=== PATIENT | male | born 1965 | race Caucasian/White ===

== ENCOUNTER → 2019-06-21 | Outpatient (CLI) | payer BC ==
[~2019-06-21] MED LIST: ACET325T49 PO; ATOR20TA49 PO; BUDE10.2 IH; CETI10CA PO; DICL75TA2 PO; HYDR-3730 PO; MELO15TA14 PO; MELO15TA39 PO; MONT10TA21 PO; NF-ACI30T PO; ONDA4TAB8 PO; PANT40SU PO; PANT40TA2 PO; RABE20TA PO; RT-ALBUINH IH
--- NOTE | 2019-06-21 14:08 | Diagnostic Imaging Report ---
Indication: Left rib cage pain. History of fall several years ago. Patient has been therapy for the last month. Left shoulder and rib pain. Findings: Frontal view of the chest demonstrate the lungs to be clear. The heart, mediastinum, pulmonary vascularity and visualized bony thorax normal. No pleural effusion or pneumothorax is present. Impression: Normal chest. Dictated by: Dictated on workstation # [id number]
--- NOTE | 2019-06-21 18:56 | Diagnostic Imaging Report ---
INDICATION: Left shoulder pain. AP, oblique, and trans-scapular views of the left shoulder are obtained. No fracture or dislocation is seen. There is moderate narrowing of the glenohumeral joint. The AC joint appears intact. IMPRESSION: Moderate degenerative change of the left glenohumeral joint. Left AC joint appears unremarkable. No acute bony abnormality. Dictated by: Dictated on workstation # [id number]
== END ==
LOC: RAD 11:21
PROVIDERS: ATTEND Family Medicine
DX: M19.012 Primary osteoarthritis, left shoulder (principal); R07.81 Pleurodynia
CPT/HCPCS: 71045; 73030

== ENCOUNTER → 2019-08-04 | Outpatient (CLI) | payer BC ==
--- NOTE | 2019-08-04 14:10 | Diagnostic Imaging Report ---
Exam: Nuclear medicine gastric emptying study. Date: August 04, 2019. Indication: 54-year-old male, abdominal pain, nausea, vomiting. Comparison: None. Findings: 1.08 mCi of technetium labeled sulfur colloid was administered. Subsequent anterior and posterior scintigraphic images of the stomach were obtained over a 4 hour timeframe for calculation of gastric emptying. At 1 hour, there is approximately 65% gastric emptying. At 2 hours, there is approximately 68% gastric emptying. At 3 hours, there is approximately 70% gastric emptying. At 4 hours, there is approximately 79% gastric emptying. Impression: 1. Initially, there is rapid gastric emptying. However, at 4 hours, there is 79% gastric emptying which is below lower limits of normal and compatible with delay in gastric emptying. Dictated by: Dictated on workstation # [id number]
== END ==
LOC: CARD 09:02
PROVIDERS: ATTEND Surgery
DX: R10.9 Unspecified abdominal pain (principal); R11.2 Nausea with vomiting, unspecified; R14.0 Abdominal distension (gaseous)
CPT/HCPCS: 78264

== ENCOUNTER → 2019-08-10 | Outpatient (CLI) | payer BC ==
--- NOTE | 2019-08-10 17:51 | Diagnostic Imaging Report ---
PROCEDURE: MR imaging cervical spine without contrast. TECHNIQUE: Multiplanar, multisequence MR imaging of the cervical spine was performed without contrast. DATE: August 10, 2019. COMPARISON: None. INDICATION: 54-year-old male, neck pain. FINDINGS: There is normal cervical spine alignment. The bone marrow signal is unremarkable. The visualized spinal cord is unremarkable. The disc heights are well preserved. C2-C3: There is no disc bulge. The uncovertebral and facet joints are unremarkable. There is no foraminal narrowing. There is no spinal canal stenosis. C3-C4: There is no disc bulge. There are right facet degenerative changes. There is moderate right foraminal narrowing. There is no spinal canal stenosis. C4-C5: There is no disc bulge. There are mild right facet degenerative changes. There is no foraminal narrowing. There is no spinal canal stenosis. C5-C6: There is no disc bulge. The uncovertebral and facet joints are unremarkable. There is no foraminal narrowing. There is no spinal canal stenosis. C6-C7: There is no disc bulge. The uncovertebral and facet joints are unremarkable. There is no foraminal narrowing. There is no spinal canal stenosis. C7-T1: There is no disc bulge. The uncovertebral and facet joints are unremarkable. There is no foraminal narrowing. There is no spinal canal stenosis. IMPRESSION: 1. Right facet degenerative changes at C3-C4 with associated moderate right foraminal narrowing. 2. Mild right facet degenerative changes at C4-C5 without foraminal or spinal stenosis. 3. No cervical disc protrusion or extrusion. 4. No abnormal signal within the cervical spinal cord. Dictated by: Dictated on workstation # [id number]
== END ==
LOC: RAD 16:16
PROVIDERS: ATTEND Orthopaedic Surgery
DX: M47.22 Other spondylosis with radiculopathy, cervical region (principal); M48.02 Spinal stenosis, cervical region
CPT/HCPCS: 72141

== ENCOUNTER → 2019-12-25 | Outpatient (CLI) | payer BC ==
[2019-12-25 12:25] LABS: BASOPHILS % (AUTO) 1 % (0-10); EOSINOPHILS # (AUTO) 0.1 10^3/uL (0.0-0.3); EOSINOPHILS % (AUTO) 2 % (0-10); HEMATOCRIT 44 % (40-54); HEMOGLOBIN 15.3 G/DL (13.3-17.7); LYMPHOCYTES # (AUTO) 1.2 X 10^3 (1.0-4.0); LYMPHOCYTES % (AUTO) 20 % (12-44); MEAN CORPUSCULAR HEMOGLOBIN 31 PG (25-34); MEAN CORPUSCULAR HGB CONC 35 G/DL (32-36); MEAN CORPUSCULAR VOLUME 88 FL (80-99); MEAN PLATELET VOLUME 9.8 FL (7.4-10.4); MONOCYTES # (AUTO) 0.5 X 10^3 (0.0-1.0); MONOCYTES % (AUTO) 8 % (0-12); NEUTROPHILS # (AUTO) 4.1 X 10^3 (1.8-7.8); NEUTROPHILS % (AUTO) 70 % (42-75); PLATELET COUNT 215 10^3/uL (130-400); WHITE BLOOD COUNT 5.8 10^3/uL (4.3-11.0)
[2019-12-25 12:44] LABS: ALANINE AMINOTRANSFERASE 15 U/L (0-55); ALBUMIN 4.3 GM/DL (3.2-4.5); ALKALINE PHOSPHATASE 49 U/L (40-136); BILIRUBIN,TOTAL 0.8 MG/DL (0.1-1.0); BUN/CREATININE RATIO 8; CALCIUM 9.4 MG/DL (8.5-10.1); CARBON DIOXIDE 23 MMOL/L (21-32); CHLORIDE 106 MMOL/L (98-107); CREATININE SERUM 1.06 MG/DL (0.60-1.30); GFR ESTIMATED > 60; GLUCOSE 133 MG/DL (70-105); SODIUM 138 MMOL/L (135-145)
[2019-12-25 13:07] LABS: FREE T4 (FREE THYROXINE) 1.05 NG/DL (0.70-1.48)
== END ==
LOC: LAB 12:10
PROVIDERS: ATTEND Family Medicine
DX: J02.9 Acute pharyngitis, unspecified (principal)
CPT/HCPCS: 36415; 80053; 84439; 84443; 85025; 86308

== ENCOUNTER → 2020-03-22 | Outpatient (CLI) | payer BC ==
[~2020-03-22] MED LIST changes: +HOLD METFORMIN - RECEIVED CONTRAST 20 ML VIAL IV SCH; +IOHEXOL 350 MG/ML 100 ML (OMNIPAQUE 350) VIAL IV ONE; +NS 100 ML (IVPB) BAG IV ONE
[2020-03-22 08:21] LABS: ALANINE AMINOTRANSFERASE 14 U/L (0-55); ALBUMIN 4.3 GM/DL (3.2-4.5); ALKALINE PHOSPHATASE 53 U/L (40-136); BILIRUBIN,TOTAL 0.7 MG/DL (0.1-1.0); BUN/CREATININE RATIO 9; CALCIUM 9.4 MG/DL (8.5-10.1); CARBON DIOXIDE 20 MMOL/L (21-32); CHLORIDE 107 MMOL/L (98-107); GFR ESTIMATED > 60; GLUCOSE 101 MG/DL (70-105); POTASSIUM 3.8 MMOL/L (3.6-5.0); SODIUM 139 MMOL/L (135-145); TOTAL PROTEIN 7.3 GM/DL (6.4-8.2)
--- NOTE | 2020-03-22 09:04 | Diagnostic Imaging Report ---
EXAMINATION: CT Abdomen and Pelvis with intravenous contrast. TECHNIQUE: Multiple contiguous axial images were obtained through the abdomen and pelvis after the uneventful administration of intravenous contrast. All CT scans use one or more of the following dose optimizing techniques: automated exposure control, MA and/or KvP adjustment based on a patient size and exam type, or iterative reconstruction. HISTORY: Hiatal hernia, abdominal pain COMPARISON: 05/11/2011 FINDINGS: Limited views of the lower thorax show a new 6 mm left lower lobe nodule (series 2, image 10). The liver is normal without focal lesion. There is no biliary ductal dilation. Gallbladder is normal. Pancreas is normal. Spleen is normal. Adrenal glands are normal. The kidneys are normal. There is no hydronephrosis. Urinary bladder is normal. Visualized bowel is normal in caliber without obstruction or inflammation. There is a small hiatal hernia which is new from prior exam. No free fluid or air. No abdominal or pelvic lymphadenopathy. Aorta is normal in caliber without aneurysm. There are no suspicious osseus lesions. IMPRESSION: 1. New small hiatal hernia. 2. New small left lower lobe nodule. According to the Fleischner Society guidelines: In a low risk patient, no routine follow up is recommended. In a high risk patient, consider optional CT at 12 months. Dictated by: Dictated on workstation # [id number]
== END ==
LOC: RAD 07:50
PROVIDERS: ATTEND Thoracic Surgery (Cardiothoracic Vascular Surgery)
DX: K44.9 Diaphragmatic hernia without obstruction or gangrene (principal); R91.1 Solitary pulmonary nodule
CPT/HCPCS: 36415; 74177; 80053; 82565; 84520

== ENCOUNTER → 2020-04-02 | Outpatient (CLI) | payer BC ==
[~2020-04-02] MED LIST changes: -HOLD METFORMIN - RECEIVED CONTRAST 20 ML VIAL IV SCH; -IOHEXOL 350 MG/ML 100 ML (OMNIPAQUE 350) VIAL IV ONE; -NS 100 ML (IVPB) BAG IV ONE
== END ==
LOC: LABNPT 09:13
PROVIDERS: ATTEND Nurse Practitioner Adult Health
DX: Z11.59 Encounter for screening for other viral diseases (principal)
CPT/HCPCS: 87635

== ENCOUNTER → 2020-04-12 | Outpatient (CLI) | payer BC ==
--- NOTE | 2020-04-12 20:05 | Diagnostic Imaging Report ---
INDICATION: Hand pain, swelling. EXAMINATION: Right upper extremity venous Doppler. Spectral and color-flow imaging of the deep venous system was performed. COMPARISON: There is no prior study for comparison. FINDINGS: There is thrombus formation in a branch of the basilic vein in the mid forearm. This extends into the basilic vein cephalad to the level of the lower biceps. There also appears to be a small amount of thrombus formation within the brachial vein. The remainder of the deep venous system is unremarkable for thrombosis. IMPRESSION: 1. There is thrombosis of a branch of the basilic vein extending from the mid forearm to the lower upper arm. There is also a small amount of thrombus formation within the brachial vein. 2. There is no other evidence for a deep venous thrombosis. Dictated by: Dictated on workstation # [id number]
== END ==
LOC: RAD 13:39
PROVIDERS: ATTEND Family Medicine
DX: I82.611 Acute embolism and thrombosis of superficial veins of right upper extremity (principal); I82.621 Acute embolism and thrombosis of deep veins of right upper extremity

== ENCOUNTER → 2020-04-16 | Outpatient (CLI) | payer BC | LOC: LABNPT 08:51 | PROVIDERS: ATTEND Thoracic Surgery (Cardiothoracic Vascular Surgery) | DX: Z11.59 Encounter for screening for other viral diseases (principal) | CPT/HCPCS: 87635 ==

== ENCOUNTER → 2020-06-03 | Outpatient (CLI) | payer BC | LOC: LABNPT 06:46 | PROVIDERS: ATTEND Thoracic Surgery (Cardiothoracic Vascular Surgery) | DX: Z01.812 Encounter for preprocedural laboratory examination (principal); K44.9 Diaphragmatic hernia without obstruction or gangrene; K21.0 Gastro-esophageal reflux disease with esophagitis; Z20.828 Contact with and (suspected) exposure to other viral communicable diseases | CPT/HCPCS: 87635 ==

== ENCOUNTER 2020-07-04 08:00 | Outpatient (RCR) | payer BC ==
[2020-06-21 10:37] LABS: INR 1.1 (0.8-1.4); PROTHROMBIN TIME PATIENT 14.8 SEC (12.2-14.7)
[2020-06-21 10:44] LABS: ALANINE AMINOTRANSFERASE 80 U/L (0-55); ALBUMIN 3.7 GM/DL (3.2-4.5); ALKALINE PHOSPHATASE 178 U/L (40-136); BILIRUBIN,TOTAL 1.2 MG/DL (0.1-1.0); BUN/CREATININE RATIO 16; CALCIUM 9.1 MG/DL (8.5-10.1); CARBON DIOXIDE 22 MMOL/L (21-32); CHLORIDE 105 MMOL/L (98-107); CREATININE SERUM 0.86 MG/DL (0.60-1.30); GFR ESTIMATED > 60; GLUCOSE 97 MG/DL (70-105); POTASSIUM 3.7 MMOL/L (3.6-5.0); SODIUM 135 MMOL/L (135-145); TOTAL PROTEIN 7.8 GM/DL (6.4-8.2)
[2020-06-27 08:31] LABS: ALANINE AMINOTRANSFERASE 42 U/L (0-55); ALBUMIN 3.9 GM/DL (3.2-4.5); ALKALINE PHOSPHATASE 137 U/L (40-136); BUN/CREATININE RATIO 10; CALCIUM 9.5 MG/DL (8.5-10.1); CARBON DIOXIDE 23 MMOL/L (21-32); CHLORIDE 106 MMOL/L (98-107); CREATININE SERUM 0.92 MG/DL (0.60-1.30); GFR ESTIMATED > 60; GLUCOSE 98 MG/DL (70-105); SODIUM 139 MMOL/L (135-145); TOTAL PROTEIN 7.7 GM/DL (6.4-8.2)
[2020-06-27 08:57] LABS: INR 1.8 (0.8-1.4); PROTHROMBIN TIME PATIENT 21.3 SEC (12.2-14.7)
[2020-07-02 08:28] LABS: BASOPHILS % (AUTO) 1 % (0-10); EOSINOPHILS # (AUTO) 0.3 10^3/uL (0.0-0.3); EOSINOPHILS % (AUTO) 5 % (0-10); HEMATOCRIT 37 % (40-54); HEMOGLOBIN 12.3 G/DL (13.3-17.7); LYMPHOCYTES % (AUTO) 21 % (12-44); MEAN CORPUSCULAR HEMOGLOBIN 30 PG (25-34); MEAN CORPUSCULAR HGB CONC 33 G/DL (32-36); MEAN CORPUSCULAR VOLUME 89 FL (80-99); MEAN PLATELET VOLUME 9.6 FL (7.4-10.4); MONOCYTES # (AUTO) 0.4 X 10^3 (0.0-1.0); MONOCYTES % (AUTO) 9 % (0-12); NEUTROPHILS # (AUTO) 3.1 X 10^3 (1.8-7.8); NEUTROPHILS % (AUTO) 64 % (42-75); PLATELET COUNT 323 10^3/uL (130-400); WHITE BLOOD COUNT 4.8 10^3/uL (4.3-11.0)
[2020-07-04 08:28] LABS: INR 2.4 (0.8-1.4); PROTHROMBIN TIME PATIENT 26.5 SEC (12.2-14.7)
== END 2020-09-19 | disposition home or self-care (01) ==
LOC: LAB 08:00
PROVIDERS: ATTEND Family Medicine
DX: I82.621 Acute embolism and thrombosis of deep veins of right upper extremity (principal); Z79.899 Other long term (current) drug therapy
CPT/HCPCS: 36415; 80053; 85025; 85610

== ENCOUNTER → 2020-08-21 | Outpatient (CLI) | payer BC ==
--- NOTE | 2020-08-21 10:51 | Diagnostic Imaging Report ---
PROCEDURE: MRI right joint lower extremity without contrast. TECHNIQUE: Multiplanar, multisequence non contrast-enhanced MRI of the right lower extremity was accomplished. INDICATION: Fall 8 weeks ago with right knee injury. COMPARISON: None FINDINGS: No acute fracture is seen in the right knee. Subcortical cystlike change is seen in the lateral tibial plateau which is degenerative. There is a small right knee joint effusion. There is heterogeneity and surface irregularity of articular cartilage in the patellofemoral compartment. The medial compartment demonstrates moderate thinning and surface irregularity with no large full-thickness defects. Articular cartilage in the lateral compartment demonstrates mild thinning and surface irregularity with a small full-thickness defect at the posterior tibia measuring 3 mm. There is increased signal of the posterior horn of the medial meniscus which appears to extend to the inferior articular surface. The lateral meniscus has a horizontal tear at the posterior horn extending to the inferior articular surface (image 21 series 6). The anterior and posterior cruciate ligaments appear intact. The medial collateral ligament and the lateral collateral ligament is complex are intact. The extensor mechanism is intact. The medial and lateral retinacula appear intact. There is moderate anterior subcutaneous edema. There is minimal fluid in the Hewitt's cyst. IMPRESSION: 1. Small tear at the posterior horn of the lateral meniscus. Marked intrasubstance degeneration of the medial meniscus with suspected tear posteriorly. 2. Small right knee joint effusion. 3. Mild cartilage loss in the right knee with a small full-thickness defect at the posterior lateral tibia. Dictated by: Dictated on workstation # [id number]
== END ==
LOC: RAD 09:30
PROVIDERS: ATTEND Orthopaedic Surgery
DX: S83.281A Other tear of lateral meniscus, current injury, right knee, initial encounter (principal); W19.XXXA Unspecified fall, initial encounter
CPT/HCPCS: 73721

== ENCOUNTER → 2020-12-23 | Outpatient (CLI) | payer BC ==
--- NOTE | 2020-12-23 10:20 | Diagnostic Imaging Report ---
PROCEDURE: US Gallbladder. TECHNIQUE: Multiple real-time grayscale images were obtained over the right upper quadrant in various projections. INDICATION: Right upper quadrant pain and diarrhea after eating. COMPARISON: None available. FINDINGS: The liver is normal in size measuring 16 cm and has normal echogenicity. There is no focal hepatic mass. The main portal vein is patent with antegrade flow. The gallbladder is distended without gallstones, wall thickening, or pericholecystic fluid. The common bile duct is able to be visualized as it was secured by overlying bowel gas. No intrahepatic biliary duct dilatation. The majority of the pancreas is obscured by overlying bowel gas and cannot be evaluated. The right kidney is normal in size. No hydronephrosis, shadowing calculi, or suspicious mass lesion. IMPRESSION: 1. Normal gallbladder. 2. Common bile duct is obscured by overlying bowel gas. However, there is no intrahepatic biliary duct dilatation. Dictated by: Dictated on workstation # [id number]
== END ==
LOC: RAD 08:00
PROVIDERS: ATTEND Family Medicine
DX: R10.11 Right upper quadrant pain (principal); R19.7 Diarrhea, unspecified
CPT/HCPCS: 76705

== ENCOUNTER → 2021-01-27 | Outpatient (CLI) | payer BC ==
[~2021-01-27] MED LIST changes: +CATHETER FLUSH 10 ML SYR IV PRN
--- NOTE | 2021-01-27 11:57 | Diagnostic Imaging Report ---
Hepatobiliary with ejection fraction INDICATION: Right upper quadrant pain There are no prior nuclear medicine studies available for comparison. The gallbladder ultrasound exam performed on 12/23/2020 failed to show any sign of an acute abnormality although the common bile duct was not well visualized. For this exam 5.42 mCi of 99 technetium Choletec was administered. One can of ensure was also given for the ejection fraction calculation. There is uptake of the radiotracer by the gallbladder before 30 minutes. This would weigh against the diagnosis of acute cholecystitis. There is also extension of the radiotracer into the small bowel indicating the common bile duct is not obstructed. The ejection fraction is 32.8% (normal greater than 35%). Impression: 1. There is no evidence for an acute cholecystitis or for obstruction of common bile duct. 2. The ejection fraction is 32.8% and just below normal limits. Clinical follow-up is recommended. Dictated by: Dictated on workstation # [id number]
== END ==
LOC: CARD 09:31
PROVIDERS: ATTEND Family Medicine
DX: K82.8 Other specified diseases of gallbladder (principal)
CPT/HCPCS: 78227; A9537

== ENCOUNTER → 2021-06-05 | Outpatient (CLI) | payer BC ==
[~2021-06-05] MED LIST changes: -CATHETER FLUSH 10 ML SYR IV PRN
--- NOTE | 2021-06-05 13:08 | Diagnostic Imaging Report ---
PROCEDURE: MRI left upper extremity without contrast. TECHNIQUE: Multiplanar, multisequence non contrast-enhanced MRI of the left upper extremity was accomplished. INDICATION: Shoulder pain. No recent injuries. Prior steroid injections. EXAMINATION: Left shoulder MRI without contrast dated 03/20/2021. FINDINGS: There is diffuse thinning and T2 hyperintensity throughout the supraspinatus and portions of the infraspinatus tendons proximal to the insertion at the greater tuberosity consistent with partial tears. No full-thickness extension is appreciated. There is no retraction. The subscapularis tendon is intact. The long head of the biceps tendon is intact and lies within the bicipital groove. The biceps tendon anchor is intact. The labrum is grossly intact on this noncontrast examination. Muscle volume is preserved. Visualized axilla is unremarkable. There is narrowing and spurring and edema at the acromioclavicular joint consistent with degenerative disease. IMPRESSION: 1. Partial tears of the supraspinatus and infraspinatus tendons proximal to the insertion at the greater tuberosity. No full-thickness rotator cuff tear is appreciated. Other incidental findings as noted above. Dictated by: Dictated on workstation # [id number]
== END ==
LOC: RAD 09:30
PROVIDERS: ATTEND Orthopaedic Surgery
DX: M75.112 Incomplete rotator cuff tear or rupture of left shoulder, not specified as traumatic (principal)
CPT/HCPCS: 73221

== ENCOUNTER → 2021-06-05 | Outpatient (CLI) | payer BC ==
[2021-06-05 08:36] LABS: BASOPHILS % (AUTO) 1 % (0-10); EOSINOPHILS # (AUTO) 0.2 10^3/uL (0.0-0.3); EOSINOPHILS % (AUTO) 4 % (0-10); HEMATOCRIT 44 % (40-54); HEMOGLOBIN 14.9 g/dL (13.3-17.7); LYMPHOCYTES # (AUTO) 1.1 10^3/uL (1.0-4.0); LYMPHOCYTES % (AUTO) 22 % (12-44); MEAN CORPUSCULAR HEMOGLOBIN 32 pg (25-34); MEAN CORPUSCULAR HGB CONC 34 g/dL (32-36); MEAN CORPUSCULAR VOLUME 93 fL (80-99); MEAN PLATELET VOLUME 9.8 fL (9.0-12.2); MONOCYTES # (AUTO) 0.4 10^3/uL (0.0-1.0); MONOCYTES % (AUTO) 8 % (0-12); NEUTROPHILS # (AUTO) 3.3 10^3/uL (1.8-7.8); NEUTROPHILS % (AUTO) 66 % (42-75); PLATELET COUNT 196 10^3/uL (130-400)
[2021-06-05 08:58] LABS: ALBUMIN 3.9 GM/DL (3.2-4.5); BILIRUBIN,TOTAL 0.9 MG/DL (0.1-1.0); CALCIUM 9.5 MG/DL (8.5-10.1); CREATININE SERUM 0.83 MG/DL (0.60-1.30); POTASSIUM 3.8 MMOL/L (3.6-5.0); TOTAL PROTEIN 6.9 GM/DL (6.4-8.2)
[2021-06-05 09:18] LABS: FREE T4 (FREE THYROXINE) 0.92 NG/DL (0.70-1.48)
== END ==
LOC: LAB 08:22
PROVIDERS: ATTEND Family Medicine
DX: R53.83 Other fatigue (principal)
CPT/HCPCS: 36415; 80053; 84439; 84443; 85025

== ENCOUNTER → 2021-06-13 | Outpatient (CLI) | payer BC ==
--- NOTE | 2021-06-13 17:01 | Diagnostic Imaging Report ---
PROCEDURE: MR imaging cervical spine without contrast. TECHNIQUE: Multiplanar, multisequence MR imaging of the cervical spine was performed without contrast. INDICATION: Neck pain radiating to the left arm for 2 years. No prior studies are available for comparison. FINDINGS: Curvature and alignment of the cervical spine is normal. The vertebral body marrow signal is normal. No marrow lesion is seen. There appears to be normal height and hydration to the cervical intervertebral discs. The cervical cord demonstrates normal homogeneous signal intensity and normal morphology. Craniocervical junction is unremarkable. C2-C3: Central canal and neural foramina are widely patent. C3-C4: No significant central canal or neural foraminal stenosis is identified. C4-C5: No central canal or neural foraminal stenosis is identified. C5-C6: A very mild left-sided neural foraminal narrowing is noted. Right neural foramen and central canal widely patent. C6-C7: Central canal and neural foramina are widely patent. C7-T1: Central canal and neural foramina are widely patent. Paraspinous tissues are unremarkable. IMPRESSION: Essentially unremarkable MRI of the cervical spine apart from very mild narrowing of the left neural foramen C5-C6 level. No central canal stenosis is identified. Dictated by: Dictated on workstation # [id number]
== END ==
LOC: RAD 09:30
PROVIDERS: ATTEND Orthopaedic Surgery
DX: M48.02 Spinal stenosis, cervical region (principal)
CPT/HCPCS: 72141